=== PATIENT | male | born 1930 | race Caucasian/White ===

== ENCOUNTER 2017-04-28 05:42 | Observation (INO) | payer OTHER, MEDICARE ==
[~2017-04-28] VITALS: Ht 165.1 cm; Wt 97.1 kg
--- NOTE | ~2017-04-28 | S ---
[facility] [place] [address] SURGICAL PATH RPT PROCEDURE Name: APOLLO LONG Room #: 427-P [facility] Bryan Stark#: [id number] Admission: 04/28/17 Date of : 32 Discharge: 04/29/17 Report #: [id number] Path Case #: [id number] PATHOLOGY REPORT COLLECTION DATE: 04/28/2017 RECEIVED DATE: 04/28/2017 SUBMITTING PHYS: Dr. Zenon Hay, OTHER PHYS: Dr. Mena Ford SPECIMEN(S) RECEIVED: A.Gallbladder * * * * * * * * * * * * FINAL DIAGNOSIS: "Gallbladder," cholecystectomy: - Chronic cholecystitis. - Cholelithiasis. (CLW:mgrivera; 05/01/2017) PATHOLOGIST: Orly Lawson M.D. REPORT ELECTRONICALLY SIGNED BY: Orly Lawson M.D. DATE/TIME: 05/01/2017 15:56 * * * * * * * * * * * * GROSS PATHOLOGY: Received in formalin labeled "Apollo Long gallbladder," is an 8.1 x 3.7 x 1.1 cm, previously opened gallbladder with adipose covered serosal surfaces. Opening the gallbladder reveals a velvety, pink-turcios, bile-stained mucosa and an average wall thickness of 0.1 cm. Calculi are present displaying a black and granular appearance, and no masses are noted grossly. [employer] sections from the body and fundus are submitted along with the proximal margin in cassette A1. (CAA; 04/28/2017) CLINICAL HISTORY: Gallstones INITIAL CPT CODE(S): A; 62049 Professional services performed by [facility] at [facility] [address] , [place] [address] Technical services performed by [facility] at [address] [place] [address] [place] [address] SURGICAL PATH RPT PROCEDURE Name: APOLLO LONG Room #: 427-P HORACE Stark#: [id number] Admission: 04/28/17 Date of : 32 Discharge: 04/29/17 Report #: [id number] Path Case #: [id number] [address]. [facility] [address] [address] PHONE: [phone] DIRECTOR: Je Milian M.D. * * * END OF REPORT * * *
[~2017-04-28 05:42] MED LIST: ACETAMINOPHEN-1 EAC1 PO; ASPIR 8181 M1 PO; BENICAR40 MG PO; BYSTOLIC 5 MG5 M1 PO; CENTRUM SILVER1 EAC4 PO; COUMADIN 5 MG TA5 M1 PO; EDARBI80 MG PO; ERYTHROMYCIN E3.5 G3 OPHTHALMIC; FINASTERIDE5 MG PO; FISH OIL 1,001000 M2 PO; IMDUR 60 MG TAB60 M1 PO; KEFLEX250 MG PO; LASIX 40 MG TAB40 M2 PO; LINZESS290 MCG PO; LIPITOR40 MG PO; MOMETASONE FURO45 GM TOP; NITROGLYCERIN0.4 MG SUBLING; OMEPRAZOLE 20 M20 M1 PO; PHENERGAN12.5 M2 RECTAL; POTASSIUM CHLO20 ME1 PO; REFRESH TEARS15 ML OPHTHALMIC; TRAZODONE HCL50 MG PO; ULTRAM 50MG TAB50 MG PO; XANAX 0.25 MG0.25 MG PO; XARELTO20 MG PO
[2017-04-28 06:37] VITALS: BP 140/80
[2017-04-28 07:13] LABS: CALCIUM 8.8 mg/dL (8.5-10.1); CREATININE 0.8 mg/dL (0.7-1.3); HEMATOCRIT 30.4 % (42.0-52.0); HEMOGLOBIN 9.8 gm/dL (14.0-18.0); POTASSIUM 3.3 mmol/L (3.5-5.1)
[2017-04-28 15:11] VITALS: BP 156/85
[2017-04-28 15:12] VITALS: BP 152/73; BP 160/83
[2017-04-28 20:06] VITALS: BP 153/78
[2017-04-28 23:39] VITALS: BP 148/69
[2017-04-29 04:16] LABS: HEMOGLOBIN 9.4 gm/dL (14.0-18.0); MCH 26.7 pg (26.0-34.0); MCHC 32.5 g/dL (28.0-37.0); MCV 82.2 fL (80.0-100.0); RBC 3.53 mil/uL (4.50-6.00); RDW 16.5 % (10.5-14.5)
[2017-04-29 04:29] VITALS: BP 144/81
[2017-04-29 04:36] LABS: CREATININE 0.7 mg/dL (0.7-1.3)
[2017-04-29 07:45] VITALS: BP 155/79
[2017-04-29 11:11] VITALS: BP 155/79
[2017-04-29 11:58] VITALS: BP 155/79
== END 2017-04-29 11:49 | disposition home or self-care (01) ==
LOC: OR 05:42 → TBA 05:42 → OR 11:32 → 4E 11:33 → OR 13:58 → 4E 04-29 11:49
PROVIDERS: Surgery
DX: K80.20 Calculus of gallbladder without cholecystitis without obstruction (principal); I25.10 Atherosclerotic heart disease of native coronary artery without angina pectoris; I42.9 Cardiomyopathy, unspecified; I48.2 Chronic atrial fibrillation; E78.00 Pure hypercholesterolemia, unspecified; I10 Essential (primary) hypertension; G47.33 Obstructive sleep apnea (adult) (pediatric)
CPT/HCPCS: 50010; 50101; 50249; 50411; 50555; 50558; 50962; 51489; 51975; 52265; 53307; 53310; 54022; 54118; 55245; 56462; 56525; 56526; 62110; 62900; 70005

== ENCOUNTER → 2018-03-30 | Outpatient (CLI) | payer OTHER, MEDICARE ==
[~2018-03-30] VITALS: Ht 165.1 cm; Wt 97.5 kg
[~2018-03-30] MED LIST changes: +DIOVAN160 MG PO; +PHENERGAN 25 MG25 M1 PO; +POTASSIUM20 PO
--- NOTE | ~2018-03-30 | P ---
[facility] [place] [address] PROCEDURE REPORT Name: APOLLO LONG [id number] Admission: 03/30/18 ������������������ Attend Phys: Silverio Velasco MD Discharge: ������������������ Date of : 32 Report #: [id number] THIS REPORT FOR: //name// CC: Apollo Velasco PREOPERATIVE DIAGNOSIS: Pacemaker elective replacement interval. POSTOPERATIVE DIAGNOSIS: Pacemaker elective replacement interval. INDICATIONS: The patient is an 87-year-old with history of coronary artery disease and bradycardia, status post pacemaker implantation, whose device is currently at the elective replacement interval. He is here for generator exchange. ANESTHESIA: The patient underwent MAC anesthesia with no anesthesia related complications. DESCRIPTION OF PROCEDURE: The patient underwent informed consent. We discussed the details of the procedure including the risk, which include, but not limited to bleeding, infection, and vascular damage. He understands these risks and is willing to proceed. The patient was brought to the EP laboratory in fasting and un-sedated state, prepped and draped in a sterile fashion and received IV antibiotics prior to initiation of the procedure. Next, lidocaine was injected at the incision site. Incision was made, the chronic pocket was entered. The old device was disconnected and the lead was tested and found to be functioning normally and the new device was connected to the leads. Tug test was performed and the lead was placed in the pocket. Pocket was irrigated with vancomycin solution and then closed in 2 layers using 2-0 for the deep layer, 3-0 for the middle layer. Surgical glue was placed to the outer skin. The patient awoke neurologically and hemodynamically intact. No complications and no significant bleed. The explanted device was a [employer] model # S601, serial #[id number] originally implanted back in 09/2010. The newly implanted device was a [employer] model # TK0491, serial #[id number]. The RV lead was a [employer] model #4458, serial #[id number] with a peak R-wave of 8.2 millivolts, pacing impedance of 580 ohms and the pacing threshold 1 volt at 0.4 milliseconds. The device was programmed to the VVIR 60-130 mode. CONCLUSIONS: [facility] [address] [place] [address] PROCEDURE REPORT Name: APOLLO LONG ARIEL Room #: REG [facility]#: [id number] Admission: 03/30/18 ������������������ Attend Phys: Silverio Velasco MD Discharge: ������������������ Date of : 32 Report #: [id number] 1. Successful pacemaker generator exchange. 2. Satisfactory right ventricular pacing and sensing thresholds. ��������������������������������������������� ���������������������������������������� By: ��������������������������������������������� 1251 0523 Silverio Velasco MD /nt
[2018-03-30 07:27] VITALS: BP 169/80
[2018-03-30 07:38] LABS: HEMATOCRIT 37.8 % (42.0-52.0); HEMOGLOBIN 12.3 gm/dL (14.0-18.0); MCH 28.7 pg (26.0-34.0); MCHC 32.6 g/dL (28.0-37.0); MCV 87.9 fL (80.0-100.0); PLATELET COUNT 154 thou/uL (150-400); RDW 23.6 % (10.5-14.5); WBC 4.6 thou/uL (4.0-11.0)
[2018-03-30 07:45] LABS: CALCIUM 9.1 mg/dL (8.5-10.1); CREATININE 0.9 mg/dL (0.7-1.3); POTASSIUM 3.7 mmol/L (3.5-5.1)
[2018-03-30 07:49] LABS: APTT 31.5 Seconds (24.5-32.8); INR 1.1; PROTIME 11.2 Seconds (9.3-11.4)
[2018-03-30 07:54] LABS: ALBUMIN 3.8 g/dL (3.4-5.0); TOTAL BILIRUBIN 0.6 mg/dL (<0.1-1.0); TOTAL PROTEIN 7.1 g/dL (6.4-8.2)
[2018-03-30 08:13] LABS: ABSOLUTE NEUTROPHILS 2.5 thou/uL (1.4-8.2); ANISOCYTOSIS 2+; OVALOCYTES 1+; POIKILOCYTOSIS SLIGHT
== END | disposition home or self-care (01) ==
LOC: CATH 06:50
PROVIDERS: Internal Medicine Cardiovascular Disease
DX: Z45.010 Encounter for checking and testing of cardiac pacemaker pulse generator [battery] (principal); I25.10 Atherosclerotic heart disease of native coronary artery without angina pectoris; M19.90 Unspecified osteoarthritis, unspecified site; I48.91 Unspecified atrial fibrillation; E78.5 Hyperlipidemia, unspecified; I49.5 Sick sinus syndrome; Z98.49 Cataract extraction status, unspecified eye; K21.9 Gastro-esophageal reflux disease without esophagitis; Z82.49 Family history of ischemic heart disease and other diseases of the circulatory system; Z95.5 Presence of coronary angioplasty implant and graft
CPT/HCPCS: 62110; 62900; 70005